=== PATIENT | female | born 1965 | race Two or more races ===

== ENCOUNTER 2024-02-04 04:45 | Day surgery (SDC) | payer BC ==
[2024-02-01 15:15] VITALS: BMI 24.2
[2024-02-04] MEDS ORDERED: PROPOFOL 20 ML ONE (10:28)
[2024-02-04] MEDS ORDERED: LIDOCAINE HCL/PF 2% SDV 5ML VIAL ONE (10:29)
[2024-02-04] MEDS ORDERED: SODIUM CHLORIDE 0.9% P/F 10 ML VIAL IJ ONE (10:29)
[2024-02-04] MEDS ORDERED: ceFAZolin SODIUM 1 GM VIAL ONE (10:29)
[2024-02-04] MEDS ORDERED: MIDAZOLAM HCL 2 MG/2 ML SINGLE DOSE VIAL ONE (10:29)
[2024-02-04] MEDS ORDERED: ONDANSETRON 4 MG/2 ML VIAL IVPUSH PRN (10:35)
[2024-02-04] MEDS ORDERED: PROMETHAZINE HCL 25 MG/1 ML VIAL IVPB PRN (10:35)
[2024-02-04] MEDS ORDERED: oxyCODONE HCL 5 MG TABLET PO PRN (10:35)
[2024-02-04] MEDS ORDERED: LIDOCAINE HCL 1%, 10 MG/ML (20ML VIAL) ONE (10:35)
[2024-02-04] MEDS ORDERED: LACTATED RINGERS SOLUTION 1,000 ML IV SCH (10:45)
[2024-02-04] MEDS: ceFAZolin SODIUM 1 GM VIAL IVPB ONE (10:47)
[2024-02-04] MEDS: LIDOCAINE HCL 1%, 10 MG/ML (20ML VIAL) NR ONE (10:52)
[2024-02-04] MEDS ORDERED: GLYCOPYRROLATE 0.2 MG/1 ML VIAL ONE (11:41)
[2024-02-04] MEDS ORDERED: KETOROLAC TROMETHAMINE 30 MG/1 ML VIAL ONE (11:41)
[2024-02-04] MEDS: BUPIVACAINE HCL/PF 0.25% (2.5MG/ML) 10 ML VIAL IJ ONE ×2 (11:51)
[2024-02-04 14:41] VITALS: PULSE 56; RESP 20; TEMP 97
[2024-02-04 14:43] VITALS: BP 110/72
== END 2024-02-04 14:43 | disposition home or self-care (01) ==
LOC: JASU-SURG 04:45
PROVIDERS: ATTEND Podiatrist Foot Surgery
PROC: 01BG0ZZ Excision of Tibial Nerve, Open Approach (ICD-10-PCS; principal; 2024-02-04 10:00)
DX: G57.62 Lesion of plantar nerve, left lower limb (principal)
CPT/HCPCS: 88304-TC; 94760